=== PATIENT | male | born 1990 | race American Indian/Alaskan Native ===

== ENCOUNTER 2021-08-06 10:36 | Emergency (ER) | payer SELFPAY ==
[2021-08-06] MEDS ORDERED: LIDOCAINE-MPF (1%) 10 MG/1 ML VIAL 5 ML INFILTRATI ONE (11:14)
--- NOTE | 2021-08-06 11:15 | Emergency Department Report ---
ED Dysuria HPI - HPI Chief Complaint: Urogenital-Male Stated Complaint: BURNING W/URINE Time Seen by Provider: 08/06/21 11:11 Duration: 2 Days Severity: Mild Symptoms: Dysuria: Yes, Frequency: No, Suprapubic Pain: No, Flank Pain: No, Fever: No, Hematuria: No, Abdominal Pain: No, Previous UTI's: No Other History: Patient is a 31-year-old male comes to the emergency room with known exposure to chlamydia. He endorses dysuria. No discharge. No lesions. No fever or chills. No back pain. No abdominal pain. No testicular pain. ED Review of Systems ROS: Stated complaint: BURNING W/URINE Other details as noted in HPI Comment: All other systems reviewed and negative ED Past Medical Hx - Past Medical History Previous Medical History?: No - Surgical History Past Surgical History?: No - Family History Family history: no significant - Social History Smoking Status: Current Every Day Smoker Substance Use Type: None - Medications Home Medications: Home Medications Medication Instructions Recorded Confirmed Last Taken Type Azithromycin [Zithromax Z-GIBRAN] 2,000 mg PO ONCE #4 08/06/21 Unknown Rx Dysuria Exam - Exam General: Vital signs noted. No distress. Alert and acting appropriately. Exam: Yes Moist Mucous Membranes, No CVA Tenderness, No Abdominal Tenderness, No Rigidity or Guarding ED Course Vital Signs 08/06/21 11:03 Temperature 98.1 F Pulse Rate 58 L Respiratory 16 Rate Blood Pressure 120/85 [Right] O2 Sat by Pulse 99 Oximetry ED Medical Decision Making - Medical Decision Making Vital Signs 08/06/21 11:03 Temperature 98.1 F Pulse Rate 58 L Respiratory 16 Rate Blood Pressure 120/85 [Right] O2 Sat by Pulse 99 Oximetry Known STD exposure. Patient being treated empirically. Will be given a gram of Rocephin in the ER. Discharged home with aZithromax and Flagyl. Discussed safe sex with patient. Patient verbalizes understanding of discharge plan of care including diet, activity, medications and follow-up - Differential Diagnosis STD exposure Critical care attestation.: If time is entered above; I have spent that time in minutes in the direct care of this critically ill patient, excluding procedure time. ED Disposition Clinical Impression: Possible exposure to STD Disposition: 01 HOME / SELF CARE / HOMELESS Is pt being admited?: No Does the pt Need Aspirin: No Condition: Stable Instructions: Safe Sex Additional Instructions: Antibiotic as ordered today. Diet and activity as tolerated Stay well-hydrated with water Safe sex Follow-up with PCP. Have given you referral below. Referrals: REINA LOCKE MD [Staff Physician] - 3-5 Days Time of Disposition: 11:15
[2021-08-06 11:51] VITALS: BP 124/78
== END 2021-08-06 12:00 | disposition home or self-care (01) ==
LOC: ED 10:36
DX: Z20.2 Contact with and (suspected) exposure to infections with a predominantly sexual mode of transmission (principal); F17.200 Nicotine dependence, unspecified, uncomplicated
CPT/HCPCS: 96372; 99282; J0696; J3490